=== PATIENT | male | born 1930 | race Caucasian/White ===

== ENCOUNTER 2018-05-28 12:45 | Outpatient (CLI) | payer MEDICARE, OTHER ==
[2018-05-28] MEDS ORDERED: BARIUM SULFATE 340 ML SUSP.RECON***PROCEDURE AREA ONLY**DONT ENTER PO ONE (12:54)
== END 2018-05-28 23:59 | disposition home or self-care (01) ==
LOC: RAD 12:45
PROVIDERS: ATTEND Internal Medicine
DX: R13.12 Dysphagia, oropharyngeal phase (principal); Z87.891 Personal history of nicotine dependence
CPT/HCPCS: 74230

== ENCOUNTER 2019-09-02 09:34 | Emergency (ER) | payer MEDICARE ==
[~2019-09-02] VITALS: Ht 175.3 cm; Wt 81.8 kg
[2019-09-02] MEDS ORDERED: meclizine 12.5mg tablet PO ONE (09:55)
[2019-09-02] MEDS ORDERED: acetaminophen 325mg tablet PO ONE (10:05)
[2019-09-02 10:29] LABS: BASOPHILS % (AUTO) 0.6 % (0-1); EOSINOPHILS # (AUTO) 0.2 X10'3 (0-0.9); EOSINOPHILS % (AUTO) 2.5 % (0-6); HEMATOCRIT 40.5 % (42.0-52.0); LYMPHOCYTES # (AUTO) 1.5 X10'3 (1.1-4.8); LYMPHOCYTES % (AUTO) 20.2 % (21-51); MEAN CORPUSCULAR HEMOGLOBIN 34.1 PG (27.0-31.0); MEAN CORPUSCULAR HGB CONC 34.5 g/dL (33.0-36.5); MEAN CORPUSCULAR VOLUME 98.8 FL (78-98); MEAN PLATELET VOLUME 9.6 FL (7.4-10.4); MONOCYTES # (AUTO) 0.6 X10'3 (0-0.9); MONOCYTES % (AUTO) 7.9 % (2-12); NEUTROPHILS # (AUTO) 5.2 X10'3 (1.8-7.7); NEUTROPHILS % (AUTO) 68.8 % (42-75); PLATELET COUNT 185 X10'3 (140-440); RED CELL DISTRIBUTION WIDTH 13.7 % (11.5-14.5); WHITE BLOOD COUNT 7.5 X10'3 (4.5-11.0)
--- NOTE | 2019-09-02 10:35 | NUR ---
MEDICAL RECORDS RELEASE FAXED TO [facility]
[2019-09-02 10:49] LABS: ALBUMIN 3.6 G/DL (3.4-5.0); ANION GAP 7 (8-16); BILIRUBIN,TOTAL 1.1 MG/DL (0.1-1.0); BLOOD UREA NITROGEN 13 MG/DL (7-18); BUN/CREATININE RATIO 13.8 (5.4-32.0); CALCIUM 8.3 MG/DL (8.5-10.1); CHLORIDE 105 MMOL/L (99-107); CREATININE 0.94 MG/DL (0.60-1.10); POTASSIUM 3.8 MMOL/L (3.5-5.1); SODIUM 141 MMOL/L (135-145); TOTAL CARBON DIOXIDE 29.5 MMOL/L (24-32); TOTAL PROTEIN 6.5 G/DL (6.4-8.2); eGFR 76 ML/MIN
[2019-09-02 10:50] LABS: ALANINE AMINOTRANSFERASE 21 U/L (12-78); ALBUMIN/GLOBULIN RATIO 1.2 (1.1-1.5); ALKALINE PHOSPHATASE 75 IU/L (46-116); ASPARTATE AMINO TRANSFERASE 23 U/L (10-37)
[2019-09-02 10:53] LABS: GLUCOSE 115 MG/DL (70-104)
--- NOTE | 2019-09-02 13:19 | NUR ---
PT TO CT VIA WHEELCHAIR WITH DIRECTOR OF ANCILLARY SERVICES
--- NOTE | 2019-09-02 14:58 | NUR ---
PT TO MRI
[2019-09-02] MEDS ORDERED: MECL-183 PO (15:00)
[2019-09-02 16:11] VITALS: BP 127/92
== END 2019-09-02 16:19 | disposition home or self-care (01) ==
LOC: ER 09:34
DX: R42 Dizziness and giddiness (principal); E78.00 Pure hypercholesterolemia, unspecified; Z79.899 Other long term (current) drug therapy
CPT/HCPCS: 36415; 70450; 70551; 80053; 84484; 85025; 93005; 99284; J8597